=== PATIENT | male | born 1955 | race Caucasian/White ===

== ENCOUNTER → 2020-09-29 10:23 | Outpatient (BNVA) | payer OTHER, SELFPAY | PROVIDERS: PCP Physician Assistant Medical; Referring Provider Physician Assistant Medical; Visit Provider Physician Assistant | DX: Z13.89 Encounter for screening for other disorder (principal) ==

== ENCOUNTER → 2020-12-17 08:00 | Outpatient (BNVA) | payer OTHER, SELFPAY | PROVIDERS: PCP Physician Assistant Medical; Visit Provider Physician Assistant ==

== ENCOUNTER 2021-03-09 08:17 | Day surgery (SDC) | payer OTHER, SELFPAY ==
[2021-03-03 13:32] VITALS: BMI 20.7
--- NOTE | 2021-03-05 12:22 | HO.ANESPROP2 ---
Documented by User: Peggy Arteaga 03/05/21 12:22 HPI - Anesthesia Eval Consult details Narrative: 65yo M for Colonoscopy PMFSH Active Problems Active Problems: All Active Problems (Updated 03/03/21 @ 13:30 by Madisyn Light) Colon cancer screening declined (Acute) Adenomatous colon polyp (Acute) Past Medical History Medical History Abdominal hernia Adenomatous colon polyp Amaurosis fugax Back pain Colon adenoma COVID-19 vaccine series completed PVD (peripheral vascular disease) Smoker Family History Family History (Updated 09/29/20 @ 12:55 by Kailee Cordero PA-C) Sister Lung cancer Surgical History Surgical History (Updated 03/03/21 @ 13:16 by Madisyn Light) History of hand surgery History of inguinal hernia repair Hx of colonoscopy Social History Social History (Updated 12/17/20 @ 08:04 by Kaya Soria CMA) Household Members: None Household Members Other:: alone 3 Are you a primary transition of care specialist to a significant other at home: No Do you presently have visiting nurse or other home services: No Alcohol intake: never Smoking Status: Current every day smoker Packs Per Day: 1 Cigarettes Per Day: 20.0 Years Smoked: 50+ Smoked in Last 30 Days: Yes Patient Interested in Nicotine Replacement: No Use of substances other than those prescribed or required for medical reasons: Yes Substance Use Type: Marijuana Substance Use Frequency: Weekly Have you been hit, kicked, punched, or otherwise hurt by someone within the past year? If so, by whom?: No Are you DNR?: No Advance Directives: No Advance Directives Information Provided: No Advance Directives on File: No Recently lost weight without trying: No Eating poorly because of decreased appetite: No Nutrition Risks: No Nutritional Risk Current occupational status: [employer] Allergies Allergy/AdvReac Type Severity Reaction Status Date / Time No Known Allergies Allergy Verified 12/17/20 08:01 Home Medications Medication Instructions Recorded Confirmed Last Taken Type alfuzosin 10 mg tablet,extended 10 mg PO DAILY 09/29/20 03/03/21 Unknown History release 24 hr atorvastatin 40 mg tablet 40 mg PO DAILY 09/29/20 03/03/21 Unknown History aspirin [Aspir-81] 81 mg PO DAILY 03/03/21 03/03/21 03/08/21 History Exam Exam Date and Time: March 05, 2021 1222 Height,Weight and Vital Signs: Height 5 ft 9 in Weight 63.503 kg Assessment and Plan Assessment Anesthesia Assessment: Chart Reviewed Documented by User: Griselda Ha 03/09/21 09:10 [facility] Past Medical History Medical History Abdominal hernia Adenomatous colon polyp Amaurosis fugax Back pain Colon adenoma COVID-19 vaccine series completed PVD (peripheral vascular disease) Smoker Family History Family History (Updated 09/29/20 @ 12:55 by Kailee Cordero PA-C) Sister Lung cancer Surgical History Surgical History (Updated 03/03/21 @ 13:16 by Madisyn Light) History of hand surgery History of inguinal hernia repair Hx of colonoscopy Social History Social History (Updated 12/17/20 @ 08:04 by Kaya Soria CMA) Household Members: None Household Members Other:: alone 3 Are you a primary transition of care specialist to a significant other at home: No Do you presently have visiting nurse or other home services: No Alcohol intake: never Smoking Status: Current every day smoker Packs Per Day: 1 Cigarettes Per Day: 20.0 Years Smoked: 50+ Smoked in Last 30 Days: Yes Patient Interested in Nicotine Replacement: No Use of substances other than those prescribed or required for medical reasons: Yes Substance Use Type: Marijuana Substance Use Frequency: Weekly Have you been hit, kicked, punched, or otherwise hurt by someone within the past year? If so, by whom?: No Are you DNR?: No Advance Directives: No Advance Directives Information Provided: No Advance Directives on File: No Recently lost weight without trying: No Eating poorly because of decreased appetite: No Nutrition Risks: No Nutritional Risk Current occupational status: retired [employer] Allergies Allergy/AdvReac Type Severity Reaction Status Date / Time No Known Allergies Allergy Verified 12/17/20 08:01 Home Medications Medication Instructions Recorded Confirmed Last Taken Type alfuzosin 10 mg tablet,extended 10 mg PO DAILY 09/29/20 03/03/21 Unknown History release 24 hr atorvastatin 40 mg tablet 40 mg PO DAILY 09/29/20 03/03/21 Unknown History aspirin [Aspir-81] 81 mg PO DAILY 03/03/21 03/03/21 03/08/21 History Exam Airway Mallampati Class: I (Edentulous) TM Dist: >3cm Neck ROM: Full Heart: RRR Lungs: CTa Bl Assessment and Plan Assessment Anesthesia Assessment: Anesthesia Plan Discussed and Chart Reviewed Final Anesthetic Review NPO: Yes ASA Class: III Final Preanesthetic Review: No Changes in Pt Med Stat and Consent Obtained/Reviewed Patient Risk: Intermediate Procedure Risk: Intermediate Anesthetic Plan Anesthetic Plan: MAC: Disposition: Standard PACU
--- NOTE | 2021-03-09 08:41 | MHC.SHP ---
Pre-Procedural Eval Section B Chief Complaint: Adenomatous Colon Polyp Relevant Family History (Specify if Yes): No Relevant Social History: Tobacco Use Present Medications: see Short Stay Collaborative assessment Medical History: Significant History (Abdominal hernia Adenomatous colon polyp Amaurosis fugax Back pain Colon adenoma COVID-19 vaccine series completed PVD (peripheral vascular disease) Smoker) History of Previous Operations: Relevant previous surgery/procedure and date(s) Allergies: Allergies Allergy/AdvReac Type Severity Reaction Status Date / Time No Known Allergies Allergy Verified 12/17/20 08:01 Review of Systems Sugical H&P ROS: Negative: Constitution, Cardiovascular, Respiratory, Neurological, Psychiatric, Hem-Onc, Allergic/Immunologic, Gastrointestinal, Genitourinary, Musculoskeletal, Integumentary, Endocrine and Eyes/Ears/Nose/Throat Exam Surgical H&P Exam: Normal: HEENT, Normal: Heart, Normal: Lungs, Normal: Extremities, Normal: Abdomen, Normal: Skin and Normal: Neurological Plan Diagnosis/Plan: Unchanged I have reviewed the history and physical and performed a pertinent physical examination on my patient. No changes have occurred unless specified.
[2021-03-09 08:43] VITALS: BP 123/93; PULSE 87; RESP 18; TEMP 36.4; O2SAT 97
[2021-03-09] MEDS: Lactated Ringers 1,000 ML 100 ML IVCONT (09:04)
--- NOTE | 2021-03-09 09:11 | P.BOP_ITS ---
Brief Operative Note Date of Service: 03/09/21 Pre-op diagnosis: hx of polyp Post-op diagnosis: same Procedure: see op note Surgeon: Lenin Dumont MD Anesthesia: MAC Was an Taxation Economist used for this Procedure?: No Estimated blood loss (mL): 0 Condition: stable Disposition: PACU
--- NOTE | 2021-03-09 09:11 | P.OP_ITS ---
Operative Note Operative Note Date of Service: 03/09/21 Narrative: Operative Information Procedure Description: Colonoscopy COLONOSCOPY Instrument: Olympus variable stiffness pediatric scope 190L Colonoscopy Monitoring: Vital signs and clinical assessment, continuous EKG monitoring, Pulse oximetry, Carbon Dioxide monitoring and blood pressure monitoring were done throughout the procedure. Colon withdrawal time was 19 minutes. Procedure: The patient was placed in the left lateral decubitis position and pre-procedure medications were administered. After a digital rectal examination of the ano-rectum, the video colonoscope was inserted into the rectum and advanced through the colon to the cecum/TI. The colonoscope was slowly withdrawn in a retrograde panoramic fashion and the colon mucosa was carefully examined including a retroflexed view of the rectum. Findings and interventions are described below. Procedure Difficulty:moderate Findings: Terminal Ileum-normal Cecum:normal Ascending Colon: x 4 sessile polyps 8-10 mm removed with cold snare Transverse Colon -normal Descending Colon:normal Sigmoid Colon: x 2 sessile polyps 6-8 mm in size removed with forceps Rectum: Retroflexion with small internal hemorrhoids, grade I Anorectum - normal Colon preparation: [place] Bowel Preparation Scale Right colon; 2 Transverse colon: 2 Left colon; 2 (0 = Unprepared colon segment with mucosa not seen due to solid stool that cannot be cleared. 1 = Portion of mucosa of the colon segment seen, but other areas of the colon segment not well seen due to staining, residual stool and/or opaque liquid. 2 = Minor amount of residual staining, small fragments of stool and/or opaque liquid, but mucosa of colon segment seen well. 3 = Entire mucosa of colon segment seen well with no residual staining, small fragments of stool or opaque liquid) Impression and Post Procedure Diagnosis: polyps internal hemorrhoids Plan: High fiber diet leaflet Avoid straining at stool, epsom salts and sitz bath, anusol supps or cream as needed Repeat Colonoscopy in 3 years or earlier if clinically indicated Above findings were reviewed with the patient and relevant handouts were provided if indicated.
[2021-03-09 09:50] VITALS: BP 100/72; PULSE 69; RESP 16; TEMP 36.1; O2SAT 95
[2021-03-09 10:04] VITALS: BP 141/94; PULSE 62; RESP 16; TEMP 36.1; O2SAT 98
== END 2021-03-09 10:36 | disposition home or self-care (01) ==
PROVIDERS: PCP Physician Assistant; Visit Provider Internal Medicine Gastroenterology
PROC: 0DJD8ZZ Inspection of Lower Intestinal Tract, Via Natural or Artificial Opening Endoscopic (ICD-10-PCS; CPT 45378; principal; 2021-03-09 09:20)
DX: Z12.11 Encounter for screening for malignant neoplasm of colon (principal); Z86.010 Personal history of colon polyps; D12.2 Benign neoplasm of ascending colon; D12.5 Benign neoplasm of sigmoid colon; K64.0 First degree hemorrhoids; I73.9 Peripheral vascular disease, unspecified; G45.3 Amaurosis fugax; F17.210 Nicotine dependence, cigarettes, uncomplicated; Z79.82 Long term (current) use of aspirin; Z79.899 Other long term (current) drug therapy
CPT/HCPCS: 45385; 45380; 88305